=== PATIENT | female | born 2000 | race Two or more races ===

== ENCOUNTER → 2024-10-30 | Outpatient (CLI) | payer MEDICAID, SELFPAY ==
--- NOTE | 2024-10-30 15:15 | XR_ITS ---
Examination: PA lateral chest 2 views TECHNIQUE: Upright PA lateral chest 2 views Exam date and time: October 30, 2024 1538 hours INDICATIONS: Coughing beginning 2 weeks ago. FINDINGS: Normal heart size No lobar pneumonia or pulmonary edema Prominent thoracic dextroscoliosis IMPRESSION: No interval pneumonia or pulmonary edema
== END | disposition home or self-care (01) ==
LOC: CDIM 15:09
PROVIDERS: PCP Physician Assistant; Referring Provider Physician Assistant; Visit Provider Physician Assistant
DX: J98.01 Acute bronchospasm (principal)
CPT/HCPCS: 71046

== ENCOUNTER 2025-02-10 17:16 | Emergency (ER) | payer MEDICAID, SELFPAY ==
[2025-02-10 17:17] VITALS: BMI 29.6
[2025-02-10 17:32] VITALS: BP 119/77; PULSE 76; RESP 18; TEMP 36.9; O2SAT 98
--- NOTE | 2025-02-10 17:50 | PD.EDRME ---
Rapid Medical Screening Exam RME Arrival date/time: 02/10/25 17:16 Chief Complaint: Vaginal Bleeding Vital signs: Vital Signs Temperature 98.5 F 02/10/25 17:32 Pulse Rate 76 02/10/25 17:32 Respiratory Rate 18 02/10/25 17:32 Blood Pressure 119/77 02/10/25 17:32 Pulse Oximetry (%) 98 02/10/25 17:32 Oxygen Delivery Method Room Air 02/10/25 17:32 Vital signs reviewed by provider: Yes RME Narrative: 24-year-old female presents to the ED with complaint of lower abdominal cramping and spotting, only with wiping that began today. Her last menstrual period is unknown as she just recently had her Nexplanon removed approximately 3 months ago. She believes she is approximately 7 weeks she has not had an ultrasound yet. She denies any fever or chills, dysuria or frequency. I have greeted and performed a focused initial assessment of this patient. A comprehensive ED assessment and evaluation of the patient, analysis of all test results, and completion of the medical decision making process will be conducted by additional ED providers.
--- NOTE | 2025-02-10 17:52 | XR_ITS ---
Examination: Complete OB ultrasound, less than 14 weeks, transabdominal Date and time of exam: February 10, 2025, 1901 hours INDICATIONS: Vaginal bleeding and pelvic pain beginning today Technique: Obstetrical ultrasound images less than 14 weeks performed via transabdominal imaging Findings: A normal shaped single intrauterine gestation is present in the uterus. Uterus 10.1 cm intrauterine gestational sac 1.2 cm corresponds to 6 week 0 day gestation weight is No pole, no cardiac activity Right ovary 3.4 cm arterial flow Left ovary 3.0 cm arterial flow IMPRESSION: Empty intrauterine gestational sac corresponding to 6 week 0 day gestational age Recommend follow-up transvaginal pelvic sonography to confirm viability
[2025-02-10 18:29] LABS: Basophils % (Auto) 0 % (0-2.5); Eosinophils # (Auto) 0.1 Thou/mm3 (0.0-0.5); Eosinophils % (Auto) 1 % (0-10); Hematocrit 38.4 % (36.0-46.0); Hemoglobin 13.5 g/dL (12.0-16.0); Immature Granulocytes % (Auto) 0 % (0-0); Immature Granulocytes Auto 0.02 Thou/mm3 (0.00-0.00); Lymphocytes # (Auto) 2.1 Thou/mm3 (1.0-4.8); Lymphocytes % (Auto) 27 % (10-50); Mean Corpuscular HGB Conc 35.2 g/dl (31.0-37.0); Mean Corpuscular Hemoglobin 29.3 pg (25.0-35.0); Mean Corpuscular Volume 84 fL (80-100); Monocytes # (Auto) 0.6 Thou/mm3 (0.0-0.8); Monocytes % (Auto) 8 % (0-12); Neutrophils # (Auto) 5.1 Thou/mm3 (1.8-7.7); Neutrophils % (Auto) 64 % (37-80); Nucleated Red Blood Cell % 0 /100 WBC (0); Platelet Count 229 Thou/mm3 (140-440); RDW Standard Deviation 42.5 fL (36.4-46.3); White Blood Count 7.9 Thou/mm3 (3.6-11.0)
[2025-02-10 18:47] LABS: Collection Type, Urine Clean Catch
[2025-02-10 19:00] LABS: Alanine Aminotransferase 24 U/L (10-49); Albumin, Serum 4.7 gm/dL (3.5-5.0); Alkaline Phosphatase 82 U/L (46-116); Anion Gap 9 (7-16); Aspartate Amino Transferase 19 U/L (0-34); BUN/Creatinine Ratio 7 Ratio (12-20); Bilirubin,Total 0.4 mg/dL (0.3-1.2); Blood Urea Nitrogen < 5 mg/dL (9-23); Calcium 9.4 mg/dL (8.3-10.6); Calcium (Corrected) 9.4 mg/dL (8.5-10.1); Chloride 103 mMol/L (98-107); Creatinine (Component) 0.7 mg/dL (0.6-1.3); Globulin 2.4 gm/dL (2.3-3.5); Glucose 93 mg/dL (74-106); Osmolality,Calculated 269 (275-295); Potassium 3.6 mMol/L (3.4-5.1); Sodium 136 mMol/L (136-145); Total Protein 7.1 gm/dL (5.7-8.2); eGFR > 60 See Note
[2025-02-10 19:08] LABS: Beta HCG,Quantitative 989 mIU/mL (<5.0)
[2025-02-10 19:21] LABS: Bacteria,Urine Rare; Bilirubin,Urine Negative (Negative); Blood,Urine Negative (Negative); Color,Urine Yellow (Lt Yel-Yel); Culture Indicated,Urine Not Indicated; Glucose, Urine Negative (Negative); Ketones,Urine Trace (Negative); Leukocyte Esterase,Urine Positive (Negative); Nitrite,Urine Negative (Negative); PH,Urine 6.5 (5.0-7.0); Protein,Urine Trace (Neg - Trace); RBC,Urine 3 /hpf (0-3); Specific Gravity,Urine 1.024 (1.001-1.035); Squamous Epithelial Cell,Urine 24 /hpf (0-5); Urobilinogen,Urine Negative mg/dL (0.0-1.0); WBC,Urine 6 /hpf (0-5)
[2025-02-10 19:22] LABS: Clarity,Urine Cloudy (Clear/Hazy)
--- NOTE | 2025-02-10 21:07 | PD.EDVAGBL ---
ED OB Contraction Preg RMI/HPI General Chief complaint: Vaginal Bleeding Stated complaint: 7WK PREG AND VAG BLEEDING WITH DIZZINESS Time Seen by Provider: 02/10/25 17:55 Arrival date/time: 02/10/25 17:16 RME / HPI RME / HPI Narrative: 24-year-old female presents to the ED with complaint of lower abdominal cramping and spotting, only with wiping that began today. Her last menstrual period is unknown as she just recently had her Nexplanon removed approximately 3 months ago. She believes she is approximately 7 weeks she has not had an ultrasound yet. She denies any fever or chills, dysuria or frequency. Related Data Home Medications ?Medication ?Instructions ?Recorded ?Confirmed No Known Home Medications 11/26/22 11/26/22 Allergies Allergy/AdvReac Type Severity Reaction Status Date / Time No Known Allergies Allergy Verified 02/10/25 17:20 Review of Systems Review of Systems Systems Reviewed: All systems reviewed, normal except as documented Past Medical History Past Medical History NEUROLOGIC: Negative Neurological Disorders or Seizures CARDIAC: Negative Cardiac Disorders or Congestive Heart Failure RESPIRATORY: Negative Chronic Obstructive Pulmonary Disease (COPD) GASTROINTESTINAL: Positive Gastrointestinal Disorders and Obesity; Negative Hepatitis or Colorectal Cancer GENITOURINARY: Positive Genitourinary Disorders (hx uti); Negative Renal Disease or Prostate Cancer REPRODUCTIVE: Positive Previous Pregnancies; Negative Breast Cancer or Testicular Cancer MUSCULOSKELETAL: Positive Musculoskeletal Disorders and Scoliosis; Negative Bone Cancer ENDOCRINE: Positive Endocrine Disorders; Negative Diabetes Mellitus Type 1 or Diabetes Mellitus Type 2 HEMATOLOGIC: Negative Blood Disorders PSYCHO/SOCIAL: 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.); Negative Anxiety, Behavior Problems, Self-Mutilation, Attention Deficit Disorder, Attention Deficit Hyperactivity Disorder, Depression or Post Traumatic Stress Disorder OTHER HISTORY: Negative Hospitalization, Autoimmune Disease, Down Syndrome, Developmental Delay, Shingles, Falls, Blood Transfusions, Blood Transfusion Reaction, Anesthesia Reactions, Organ Transplant, Chemotherapy, Radiation Therapy, Hyperbaric Therapy, MRSA, VRSA, Vancomycin-Resistant Enterococci, Human Immunodeficiency Virus (HIV), Chicken Pox, Measles, Mumps, Rubella ([place] Measles), Pertussis, Clostridium Difficile, Cancer, Breast Cancer, Cervical Cancer, Colorectal Cancer, Lung Cancer, Ovarian Cancer, Prostate Cancer or Testicular Cancer Family History FAMILY HISTORY: Negative Family Psychiatric Problems, Family Respiratory Disorders, Family Cardiac Disorders, Family Gastrointestinal Problems, Family Cancer, Family Surgery or Family Anesthesia Reaction Surgical History SURGICAL: Negative Section or Organ Transplant Social History SMOKING STATUS: Never smoker SUBSTANCE USE: does not use ED Exam Narrative Physical exam: Alert and oriented 24-year-old female, no acute distress. Lungs are clear, cardiovascular regular rate and rhythm without murmurs, abdomen is soft mild pelvic tenderness. No rebound or guarding. No CVA tenderness. No flank tenderness. Vital signs are stable with a BP 119/77, pulse 76, respirations 18 nonlabored, temp 98.5, O2 sat 98% room air. Course Course Course Narrative: 24-year-old female presents to the ED with complaint of lower abdominal cramping and spotting, only with wiping that began today. Her last menstrual period is unknown as she just recently had her Nexplanon removed approximately 3 months ago. She believes she is approximately 7 weeks she has not had an ultrasound yet. She denies any fever or chills, dysuria or frequency. Alert and oriented 24-year-old female, no acute distress. Lungs are clear, cardiovascular regular rate and rhythm without murmurs, abdomen is soft mild pelvic tenderness. No rebound or guarding. No CVA tenderness. No flank tenderness. Vital signs are stable with a BP 119/77, pulse 76, respirations 18 nonlabored, temp 98.5, O2 sat 98% room air. Quality Measures none Orders Category Date Time Status US OB <= 14 weeks fetus Stat Exams 02/10/25 17:52 Completed ABO/RH Type Stat Lab 02/10/25 18:14 Completed Beta HCG,Quantitative Stat Lab 02/10/25 18:14 Completed CBC Stat Lab 02/10/25 18:14 Completed CMP [Comprehensive Metabolic Panel] Stat Lab 02/10/25 18:14 Completed UA, C/S IF [Urinalysis, C/S if Indicated] Stat Lab 02/10/25 18:31 Completed Urine Culture Stat Lab 02/10/25 18:31 Received Vital Signs Vital signs: Vital Signs Temperature 98.5 F 02/10/25 17:32 Pulse Rate 76 02/10/25 17:32 Respiratory Rate 18 02/10/25 17:32 Blood Pressure 119/77 02/10/25 17:32 Pulse Oximetry (%) 98 02/10/25 17:32 Oxygen Delivery Method Room Air 02/10/25 17:32 Vaginal Bleeding Patient data External records reviewed:: None Clinical information provided by:: patient Social determinants that could affect healthcare access:: none Patient has the following chronic illnesses:: History of previous spontaneous miscarriage and history of gestational diabetes. How is presenting disease/condition affected by chronic disease/condition?: uneffected by Evaluation data The following diagnostics were reviewed and interpreted by me:: lab results and radiology exam(s) Lab and/or radiology exams considered but not ordered:: N/A Interpretation Summary: OB US: Findings: A normal shaped single intrauterine gestation is present in the uterus. Uterus 10.1 cm intrauterine gestational sac 1.2 cm corresponds to 6 week 0 day gestation weight is No pole, no cardiac activity Right ovary 3.4 cm arterial flow Left ovary 3.0 cm arterial flow IMPRESSION: Empty intrauterine gestational sac corresponding to 6 week 0 day gestational age Recommend follow-up transvaginal pelvic sonography to confirm viability Medications / Prescriptions Medications or Prescriptions considered but not ordered:: N/A Medication administrations:: N/A Consultations Consultation(s) initiated? (list below): No Diagnosis Vaginal Bleeding Differential Diagnosis: missed , threatened , dysfunctional uterine bleeding, incomplete and ectopic without intrauterine Most likely diagnosis given after review of the tests above:: Threatened versus blighted ovum Admission Indicated Admission indicated?: not indicated Explain why admission is indicated or not indicated:: Patient is stable for discharge Admission Request Was there a request for admission?: No Disposition Plan Disposition Plan: Discharge Discharge Attestation Discharge Attestation: The patient and all family members were given an opportunity to ask questions and understood the discharge instructions. Discharge instructions specifically effects, indications for sooner follow up or return to the emergency department, and the expected course of current diagnosis. Patient condition: Stable Discharge Plan Plan Patient Disposition: HOME (Self Care) Discharge Disposition comment: Stable Prescriptions/Referrals Prescriptions/Med Rec: No Action No Known Home Medications Referrals: Norris Crawford PA-C [Primary Care Provider] - In 1 week Problem List Clinical Impression: Threatened , Blighted ovum Patient/Caregiver Discharge Instructions Education Materials: Understanding Blighted Ovum, ED Possible Miscarriage ... Additional Instructions: Contact your doctors office tomorrow morning to schedule a follow-up appointment. You will need a repeat hCG level and OB ultrasound. Follow-up with your primary care physician in 24 to 48 hours. Return to the ED for any new or worsening symptoms. Print Language: Macedonian Stand Alone Forms: Lynda Award Info., Patient Portal Info Letter PA/PUBLIC RELATIONS DIRECTOR Supervising Physician PA/PUBLIC RELATIONS DIRECTOR Supervising Physician: Dr. Roblero
== END 2025-02-10 22:09 | disposition home or self-care (01) ==
PROVIDERS: Physician Assistant; Emergency Provider Emergency Medicine; PCP Physician Assistant
DX: O02.0 Blighted ovum and nonhydatidiform mole (principal)
CPT/HCPCS: 36415; 76801; 80053; 81001; 84702; 85025; 86900; 86901; 87086; 99284

== ENCOUNTER 2025-02-18 13:46 | Emergency (ER) | payer MEDICAID, SELFPAY ==
[2025-02-18 13:48] VITALS: BMI 30.4
[2025-02-18 13:52] VITALS: BP 111/74; PULSE 91; RESP 20; TEMP 37.3; O2SAT 97
--- NOTE | 2025-02-18 14:08 | EDNOTE_ITS ---
ED OB Contraction Preg RMI/HPI General Chief complaint: OB/Uterine Contractions Stated complaint: 8 WKS PREG, BLEEDING; SHOULDER/HEAD PAIN; OB SENT Time Seen by Provider: 02/18/25 14:08 Source: patient Arrival date/time: 02/18/25 13:46 Limitations: no limitations RME / HPI RME / HPI Narrative: 24 y/o female presents w a complaint of spotting that began 1 week ago. Today she tells me she continues to spot and notices blood upon wiping. She denies abdominal pain. Last Sunday she noticed tissue upon wiping. Onset (ago): week(s) (X 1) Vaginal bleeding: light and other (Spotting) : yes Related Data Previous Rx's ?Medication ?Instructions ?Recorded cephalexin 500 mg capsule 500 mg PO QID #40 caps 02/18 Allergies Allergy/AdvReac Type Severity Reaction Status Date / Time No Known Allergies Allergy Verified 02/18/25 13:50 Review of Systems Constitutional Constitutional: Reports system reviewed and no additional complaints, except as documented Eyes Eyes: Reports system reviewed and no additional complaints, except as documented, Denies dry eyes, Denies exophthalmos and Reports floaters Cardiovascular Cardiovascular: Denies chest pain with activity and Denies claudication ED Exam General Limitations: Present no limitations General appearance: Present alert and in no apparent distress Head Head exam: Present atraumatic Eye Eye exam: Present normal appearance, PERRL and EOMI ENT ENT exam: Present normal exam, normal oropharynx and mucous membranes moist Neck Neck exam: Present normal inspection, full ROM and trachea midline Chest Chest inspection: Present normal inspection and symmetric chest wall rise Respiratory Respiratory exam: Present normal lung sounds bilaterally Cardiovascular Cardiovascular exam: Present regular rate, normal rhythm and normal heart sounds Abdominal Exam Abdominal exam: Present soft (Non tender. no guarding. ) and normal bowel sounds Rectal Exam Rectal exam: Present deferred Extremities Exam Extremities exam: Present normal inspection and full ROM Back Exam Back exam: Present normal inspection and full ROM Neurological Exam Neurological exam: Present alert and oriented X3 Psychiatric Psychiatric exam: Present normal affect and normal mood Skin Skin exam: Present warm, dry, intact and normal color Course Course Course Narrative: Patient will have a CBC, CMP, UA as well as an ultrasound. Quality Measures none Orders Category Date Time Status US OB <= 14 weeks fetus Stat Exams 02/18/25 14:19 Completed Beta HCG,Quantitative Stat Lab 02/18/25 15:06 Completed CBC Stat Lab 02/18/25 15:06 Completed Comprehensive Metabolic Panel Stat Lab 02/18/25 15:06 Completed Lipase Stat Lab 02/18/25 15:06 Completed Rh Testing Only Stat Lab 02/18/25 15:06 Completed Urinalysis Stat Lab 02/18/25 16:00 Completed Done Vital Signs Vital signs: Vital Signs Temperature 99.1 F 02/18/25 13:52 Pulse Rate 91 02/18/25 13:52 Respiratory Rate 20 02/18/25 13:52 Blood Pressure 111/74 02/18/25 13:52 Pulse Oximetry (%) 97 02/18/25 13:52 Oxygen Delivery Method Room Air 02/18/25 13:52 Room air 97% OB/Uterine Contractions MDM Narrative MDM Narrative:: Patient had an ultrasound which was consistent with spontaneous in progress. Patient also had a CBC and a CMP as well as a UA which demonstrated a urinary tract infection. Patient will have antibiotics sent to the pharmacy of her choice. Patient is to follow-up with primary care physician or [facility] within this coming week. If she is worse or not better then she may return here. Patient will be discharged in no apparent distress. Patient data External records reviewed:: Other (specify) Clinical information provided by:: patient Social determinants that could affect healthcare access:: none Patient has the following chronic illnesses:: N/A How is presenting disease/condition affected by chronic disease/condition?: caused by Evaluation data The following diagnostics were reviewed and interpreted by me:: lab results, radiology exam(s) and other (specify) (UA, ultrasound demonstrates a spontaneous in progress) Lab and/or radiology exams considered but not ordered:: N/A Interpretation Summary: Spontaneous Medications / Prescriptions Medications or Prescriptions considered but not ordered:: None Medication administrations:: [place] Consultations Consultation(s) initiated? (list below): No Diagnosis OB Contractions Differential Diagnosis: hemorrhage, -induced hypertension and premature labor Most likely diagnosis given after review of the tests above:: N/A Admission Indicated Admission indicated?: not indicated Explain why admission is indicated or not indicated:: Patient is stable Admission Request Was there a request for admission?: No Disposition Plan Disposition Plan: Discharge Discharge Attestation Discharge Attestation: The patient and all family members were given an opportunity to ask questions and understood the discharge instructions. Discharge instructions specifically effects, indications for sooner follow up or return to the emergency department, and the expected course of current diagnosis. Patient condition: Stable Discharge Plan Plan Patient Disposition: HOME (Self Care) Discharge Disposition comment: Patient discharged in no apparent distress Patient condition on transfer: Stable Prescriptions/Referrals Prescriptions/Med Rec: New cephalexin 500 mg capsule 500 mg PO QID Qty: 40 0RF Referrals: Norris Crawford PA-C [Primary Care Provider] - In 1 week Problem List Clinical Impression: Spontaneous Impression comment: Spontaneous Patient/Caregiver Discharge Instructions Education Materials: Loss Grieving, Miscarriage Trying Again Print Language: Faroese Stand Alone Forms: Lynda Award Info., Patient Portal Info Letter LILIANA/OZ Supervising Physician LILIANA/OZ Supervising Physician: Brigido
--- NOTE | 2025-02-18 14:19 | XR_ITS ---
Examination: Complete OB ultrasound, less than 14 weeks, transabdominal Date and time of exam: February 18, 2025 1438 hours INDICATIONS: History pelvic pain this week, M.Liliana. intrauterine gestational sac on pelvic sonogram February 10, 2025, no cardiac motion Technique: Obstetrical ultrasound images less than 14 weeks performed via transabdominal imaging Findings: Uterus 9.3 cm gestational sac 0.67 cm corresponds to 5 weeks 3 days gestational age No cardiac activity, no pole the sac is low in position in the uterus Right ovary 3.2 cm arterial flow Left ovary 3.7 cm arterial flow IMPRESSION: Findings most consistent with spontaneous in progress
[2025-02-18 15:34] LABS: Basophils % (Auto) 0 % (0-2.5); Eosinophils # (Auto) 0.1 Thou/mm3 (0.0-0.5); Eosinophils % (Auto) 1 % (0-10); Hematocrit 38.6 % (36.0-46.0); Hemoglobin 13.5 g/dL (12.0-16.0); Immature Granulocytes % (Auto) 0 % (0-0); Immature Granulocytes Auto 0.02 Thou/mm3 (0.00-0.00); Lymphocytes # (Auto) 1.7 Thou/mm3 (1.0-4.8); Lymphocytes % (Auto) 24 % (10-50); Mean Corpuscular Volume 83 fL (80-100); Monocytes # (Auto) 0.9 Thou/mm3 (0.0-0.8); Monocytes % (Auto) 13 % (0-12); Neutrophils # (Auto) 4.3 Thou/mm3 (1.8-7.7); Neutrophils % (Auto) 62 % (37-80); Nucleated Red Blood Cell % 0 /100 WBC (0); Platelet Count 221 Thou/mm3 (140-440); RDW Standard Deviation 41.1 fL (36.4-46.3); Red Blood Count 4.66 Miln/mm3 (4.00-5.20)
[2025-02-18 15:46] LABS: Alanine Aminotransferase 32 U/L (10-49); Albumin, Serum 4.5 gm/dL (3.5-5.0); Alkaline Phosphatase 81 U/L (46-116); Anion Gap 9 (7-16); BUN/Creatinine Ratio 10 Ratio (12-20); Bilirubin,Total 0.4 mg/dL (0.3-1.2); Blood Urea Nitrogen 7 mg/dL (9-23); Calcium 9.3 mg/dL (8.3-10.6); Calcium (Corrected) 9.3 mg/dL (8.5-10.1); Carbon Dioxide 25.4 mMol/L (20.0-31.0); Chloride 102 mMol/L (98-107); Creatinine (Component) 0.7 mg/dL (0.6-1.3); Estimated Creatinine Clearance 144.7 mL/min (>60); Globulin 2.3 gm/dL (2.3-3.5); Glucose 97 mg/dL (74-106); Lipase 43 U/L (12-53); Osmolality,Calculated 269 (275-295); Sodium 136 mMol/L (136-145); Total Protein 6.8 gm/dL (5.7-8.2); eGFR > 60 See Note
[2025-02-18 16:02] LABS: Beta HCG,Quantitative 920 mIU/mL (<5.0)
[2025-02-18 16:09] LABS: Collection Type, Urine Clean Catch
[2025-02-18 16:38] LABS: Bilirubin,Urine Negative (Negative); Blood,Urine 3+ (Negative); Color,Urine Red (Lt Yel-Yel); Glucose, Urine Negative (Negative); Ketones,Urine Negative (Negative); Leukocyte Esterase,Urine Positive (Negative); Nitrite,Urine Negative (Negative); PH,Urine 6.5 (5.0-7.0); Protein,Urine 2+ (Neg - Trace); RBC,Urine 28082 /hpf (0-3); Squamous Epithelial Cell,Urine 92 /hpf (0-5); Urobilinogen,Urine Negative mg/dL (0.0-1.0); WBC,Urine 48 /hpf (0-5)
[2025-02-18 16:43] LABS: Clarity,Urine Bloody (Clear/Hazy)
--- NOTE | 2025-02-18 17:20 | PC.NURSE ---
PT C/O PAIN AND SAID SHE IS PASSING A LOT OF CLOTS. INFORMED PROVIDER LEONORA OF PT'S REQUEST FOR PAIN MED AND ASKED FOR HIM TO REVIEW HER LABS. PT IS ANXIOUS TO GO HOME IF THERE IS NO NEED TO KEEP HER.
== END 2025-02-18 18:31 | disposition home or self-care (01) ==
PROVIDERS: Physician Assistant; Emergency Provider Emergency Medicine; PCP Physician Assistant
DX: O03.9 Complete or unspecified spontaneous abortion without complication (principal)
CPT/HCPCS: 36415; 76801; 80053; 81001; 83690; 84702; 85025; 86901; 99284

== ENCOUNTER 2025-06-29 17:23 | Emergency (ER) | payer MEDICAID, SELFPAY ==
[2025-06-29 18:18] VITALS: BP 119/80; PULSE 82; RESP 18; TEMP 36.8; O2SAT 99
--- NOTE | 2025-06-29 18:20 | XR_ITS ---
Examination: CT abdomen and pelvis without contrast. Coronal 3-D reconstructions. Sagittal 2-D reconstructions. Date and time of exam: June 29, 2025, 1949 hours INDICATIONS: Onset right lower abdominal pain today CTDI: vol (mGy): 10.2 DLP: (mGycm): 585 Technique: Axial images of the abdomen have been obtained, 3 mm slice thickness Intravenous contrast material has not been administered. Low dose protocols were performed. One or more of the following dose reduction techniques were used; automated exposure control, adjustment of the mA and/or KV according to patient size, use of iterative reconstruction technique. Findings: No focal liver or splenic lesions No gallstones No pancreatic or adrenal mass No renal or ureteral calculi, no hydronephrosis Tiny fat-containing umbilical hernia Small lymph nodes in the right lower mesentery Normal appendix No bowel obstruction Intact bladder The osseous structures are intact Small right ovarian cysts, the largest 15 mm IMPRESSION: No renal or ureteral calculi, no hydronephrosis Normal appendix No bowel obstruction diverticulitis or free air Recommend pelvic sonography follow-up to assess right ovarian cystic disease
--- NOTE | 2025-06-29 18:20 | XR_ITS ---
Examination: Pelvic ultrasound, transabdominal, complete Technique: Transabdominal ultrasound of the pelvis performed using grayscale imaging Date and time of exam: June 29, 2025, 1926 hours INDICATIONS: Intermittent vaginal bleeding beginning 4 months ago FINDINGS: Uterus 6.7 cm endometrial stripe 0.5 cm No uterine mass or intrauterine gestation Right ovary 4.0 cm arterial flow 3.2 cm cyst Left ovary 3.1 cm arterial flow IMPRESSION: No uterine mass or intrauterine gestation Right ovarian cyst with internal echoes, consider hemorrhagic cyst, recommend 6-month follow-up pelvic sonography
[2025-06-29 18:50] LABS: Collection Type, Urine Clean Catch
[2025-06-29 19:01] LABS: HCG Qualitative,Urine Negative
[2025-06-29 19:03] LABS: Bilirubin,Urine Negative (Negative); Blood,Urine Trace (Negative); Clarity,Urine Clear (Clear/Hazy); Color,Urine Yellow (Lt Yel-Yel); Glucose, Urine Negative (Negative); Ketones,Urine Negative (Negative); Leukocyte Esterase,Urine Positive (Negative); Nitrite,Urine Negative (Negative); PH,Urine 6.0 (5.0-7.0); Protein,Urine Negative (Neg - Trace); RBC,Urine 4 /hpf (0-3); Specific Gravity,Urine 1.026 (1.001-1.035); Squamous Epithelial Cell,Urine 12 /hpf (0-5); Urobilinogen,Urine Negative mg/dL (0.0-1.0); WBC,Urine 5 /hpf (0-5)
[2025-06-29 19:36] LABS: Basophils # (Auto) 0.0 Thou/mm3 (0.0-0.2); Basophils % (Auto) 1 % (0-2.5); Eosinophils # (Auto) 0.1 Thou/mm3 (0.0-0.5); Eosinophils % (Auto) 1 % (0-10); Hematocrit 40.9 % (36.0-46.0); Hemoglobin 13.9 g/dL (12.0-16.0); Immature Granulocytes Auto 0.02 Thou/mm3 (0.00-0.00); Lymphocytes # (Auto) 2.8 Thou/mm3 (1.0-4.8); Lymphocytes % (Auto) 39 % (10-50); Mean Corpuscular HGB Conc 34.0 g/dl (31.0-37.0); Mean Corpuscular Hemoglobin 28.5 pg (25.0-35.0); Mean Corpuscular Volume 84 fL (80-100); Monocytes # (Auto) 0.8 Thou/mm3 (0.0-0.8); Monocytes % (Auto) 11 % (0-12); Neutrophils # (Auto) 3.5 Thou/mm3 (1.8-7.7); Neutrophils % (Auto) 49 % (37-80); Nucleated Red Blood Cell # 0.00 Thou/mm3 (0.00-0.00); Nucleated Red Blood Cell % 0 /100 WBC (0); Platelet Count 250 Thou/mm3 (140-440); RDW Standard Deviation 41.6 fL (36.4-46.3); Red Blood Count 4.87 Miln/mm3 (4.00-5.20); White Blood Count 7.2 Thou/mm3 (3.6-11.0)
[2025-06-29 19:59] LABS: Alanine Aminotransferase 16 U/L (10-49); Albumin, Serum 4.9 gm/dL (3.5-5.0); Albumin/Globulin Ratio 1.8 (1.2-2.2); Alkaline Phosphatase 89 U/L (46-116); Anion Gap 8 (7-16); Aspartate Amino Transferase 18 U/L (0-34); BUN/Creatinine Ratio 8 Ratio (12-20); Bilirubin,Total 0.3 mg/dL (0.3-1.2); Blood Urea Nitrogen 8 mg/dL (9-23); Calcium 9.6 mg/dL (8.3-10.6); Calcium (Corrected) 9.6 mg/dL (8.5-10.1); Carbon Dioxide 26.9 mMol/L (20.0-31.0); Chloride 106 mMol/L (98-107); Creatinine (Component) 1.0 mg/dL (0.6-1.3); Globulin 2.8 gm/dL (2.3-3.5); Glucose 98 mg/dL (74-106); Lipase 48 U/L (12-53); Osmolality,Calculated 279 (275-295); Potassium 4.0 mMol/L (3.4-5.1); Sodium 141 mMol/L (136-145); Total Protein 7.7 gm/dL (5.7-8.2); eGFR > 60 See Note
--- NOTE | 2025-06-29 21:55 | PD.EDABDPN ---
ED Abdominal Pain RME/HPI General Chief Complaint: Abdominal Pain Stated complaint: PELVIC PAIN Time seen by provider: 06/29/25 17:30 Arrival date/time: 06/29/25 17:23 This is a case of 25-year-old female who came in the emergency room due to right-sided abdominal pain radiating to the right pelvic area associated with nausea vomiting for 3 days patient states that after she had miscarriage last February 2025 2 para 1 she started to have pain worsening of the pain now with vaginal spotting this patient decided to sought consult here in the emergency room Limitations: no limitations Related Data Previous Rx's ?Medication ?Instructions ?Recorded cephalexin 500 mg capsule 500 mg PO QID #40 caps 02/18/25 cephalexin 500 mg tablet 500 mg PO QID #40 tabs 06/29/25 ibuprofen 800 mg tablet 800 mg PO Q8H PRN pain #20 tabs 06/29/25 ondansetron 4 mg disintegrating 4 mg PO Q8H #20 tabs 06/29/25 tablet Allergies Allergy/AdvReac Type Severity Reaction Status Date / Time No Known Allergies Allergy Verified 06/29/25 17:26 Review of Systems Review of Systems Systems Reviewed: All systems reviewed, normal except as documented Constitutional Constitutional: Reports system reviewed and no additional complaints, except as documented and Reports as per HPI Cardiovascular Cardiovascular: Reports system reviewed and no additional complaints, except as documented and Reports as per HPI Respiratory Respiratory: Reports system reviewed and no additional complaints, except as documented and Reports as per HPI Gastrointestinal Gastrointestinal: Reports system reviewed and no additional complaints, except as documented and Reports as per HPI Genitourinary Genitourinary: Reports system reviewed and no additional complaints, except as documented and Reports as per HPI Musculoskeletal Musculoskeletal: Reports system reviewed and no additional complaints, except as documented and Reports as per HPI Neurologic Neurologic: Reports system reviewed and no additional complaints, except as documented and Reports as per HPI Past Medical History Past Medical History NEUROLOGIC: Negative Neurological Disorders or Seizures CARDIAC: Negative Cardiac Disorders or Congestive Heart Failure RESPIRATORY: Negative Chronic Obstructive Pulmonary Disease (COPD) GASTROINTESTINAL: Positive Gastrointestinal Disorders and Obesity; Negative Hepatitis or Colorectal Cancer GENITOURINARY: Positive Genitourinary Disorders (hx uti); Negative Renal Disease or Prostate Cancer REPRODUCTIVE: Positive Previous Pregnancies; Negative Breast Cancer or Testicular Cancer MUSCULOSKELETAL: Positive Musculoskeletal Disorders and Scoliosis; Negative Bone Cancer ENDOCRINE: Positive Endocrine Disorders; Negative Diabetes Mellitus Type 1 or Diabetes Mellitus Type 2 HEMATOLOGIC: Negative Blood Disorders PSYCHO/SOCIAL: 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.); Negative Anxiety, Behavior Problems, Self-Mutilation, Attention Deficit Disorder, Attention Deficit Hyperactivity Disorder, Depression or Post Traumatic Stress Disorder OTHER HISTORY: Negative Hospitalization, Autoimmune Disease, Down Syndrome, Developmental Delay, Shingles, Falls, Blood Transfusions, Blood Transfusion Reaction, Anesthesia Reactions, Organ Transplant, Chemotherapy, Radiation Therapy, Hyperbaric Therapy, MRSA, VRSA, Vancomycin-Resistant Enterococci, Human Immunodeficiency Virus (HIV), Chicken Pox, Measles, Mumps, Rubella ([place] Measles), Pertussis, Clostridium Difficile, Cancer, Breast Cancer, Cervical Cancer, Colorectal Cancer, Lung Cancer, Ovarian Cancer, Prostate Cancer or Testicular Cancer Family History FAMILY HISTORY: Negative Family Psychiatric Problems, Family Respiratory Disorders, Family Cardiac Disorders, Family Gastrointestinal Problems, Family Cancer, Family Surgery or Family Anesthesia Reaction Surgical History SURGICAL: Negative Section or Organ Transplant Social History SMOKING STATUS: Never smoker SUBSTANCE USE: does not use ED Exam General Limitations: Present no limitations General appearance: Present alert, in no apparent distress and other (Patient is awake alert oriented not in distress nontoxic looking well-hydrated well-nourished) Head Head exam: Present atraumatic, normocephalic and normal inspection Eye Eye exam: Present normal appearance, PERRL and EOMI ENT ENT exam: Present normal exam, normal oropharynx and mucous membranes moist Neck Neck exam: Present normal inspection, full ROM and trachea midline; Absent tenderness, meningismus, lymphadenopathy or thyromegaly Chest Chest inspection: Present normal inspection and symmetric chest wall rise; Absent tenderness Respiratory Respiratory exam: Present normal lung sounds bilaterally; Absent respiratory distress, wheezes, stridor, accessory muscle use or prolonged expiratory phase Cardiovascular Cardiovascular exam: Present regular rate, normal rhythm and normal heart sounds; Absent bradycardia, tachycardia, irregular rhythm, systolic murmur or diastolic murmur Abdominal Exam Abdominal exam: Present soft, tenderness (Mild tenderness on the right pelvic area and right lower quadrant but no guarding no rebound no rigidity negative psoas negative straight or negative Rovsing's negative Manter's negative IV sign negative CVA tenderness) and normal bowel sounds; Absent distention, guarding, rebound, rigidity, diminished bowel sounds, hyperactive bowel sounds, hypoactive bowel sounds, organomegaly, obturator sign, Hollingsworth's sign, Rovsing's sign, tenderness at McBurney's Point or hernia Extremities Exam Extremities exam: Present normal inspection and full ROM Back Exam Back exam: Present normal inspection and full ROM Neurological Exam Neurological exam: Present alert, oriented X3, CN II-XII intact, normal gait and reflexes normal; Absent motor sensory deficit Psychiatric Psychiatric exam: Present normal affect and normal mood Skin Skin exam: Present warm, dry, intact and normal color Course Quality Measures none Orders Category Date Time Status CT abdomen pelvis wo con Stat Exams 06/29/25 18:20 Completed US pelvic complete Stat Exams 06/29/25 18:20 Completed CBC Stat Lab 06/29/25 19:27 Completed Comprehensive Metabolic Panel Stat Lab 06/29/25 19:27 Completed HCG Qualitative,Urine Stat Lab 06/29/25 18:28 Completed Lipase Stat Lab 06/29/25 19:27 Completed Urinalysis Stat Lab 06/29/25 18:28 Completed Vital Signs Vital signs: Vital Signs Temperature 98.3 F 06/29/25 18:18 Pulse Rate 82 06/29/25 18:18 Respiratory Rate 18 06/29/25 18:18 Blood Pressure 119/80 06/29/25 18:18 Pulse Oximetry (%) 99 06/29/25 18:18 Oxygen Delivery Method Room Air 06/29/25 18:18 Oxygen saturation is 99% in room air Abdominal Pain MDM MDM Narrative MDM Narrative:: This is a case of 25-year-old female who came in the emergency room due to right-sided abdominal pain radiating to the right pelvic area associated with nausea vomiting for 3 days patient states that after she had miscarriage last February 2025 2 para 1 she started to have pain worsening of the pain now with vaginal spotting this patient decided to sought consult here in the emergency room physical examination patient is awake alert oriented not in distress nontoxic looking well-hydrated well-nourished patient has excellent skin turgor patient noted to have mild tenderness on the right lower quadrant and right pelvic area no rigidity no guarding no rebound tenderness negative psoas negative straight or negative Rovsing's negative McBurney's negative Hollingsworth sign negative CVA tenderness bladder is not distended not tender the rest of the physical examination and neurological exam is normal and unremarkable blood test showed no leukocytosis no anemia kidney and liver function is normal no electrolyte imbalance lipase is normal patient is not urinalysis shows WBC in the urine suggestive of urinary tract infection CT scan showed were unremarkable except for right ovarian cyst which was confirmed by the pelvic ultrasound possible hemorrhagic cyst but no ovarian torsion patient was given [place] Zofran which improved and resolve the pain I have a long discussion with the patient she needs to see an OB bookkeeping clerks supervisor for further evaluation and treatment of abnormal vaginal spotting and right ovarian cyst for any worsening symptoms or any emergent concerns she will return in the emergency room immediately or call 911 she was prescribed with ibuprofen for pain Zofran for nausea vomiting and cephalexin for urinary tract infection Patient was discharged with comfortable condition walking with stable gait. Patient verbalized no further complains explained diagnosis and answered patient question. Patient is comfortable with the proposed management plan including the need to follow up with his/her primary care physician and any specialist if applicable Discussed patient for any urgent condition or worsening sx, He/She needed to go to emergency room immediately or call 911. Patient acknowledge the responsibility to follow up as instructed and to monitor her/his symptoms. For any persistence of the symptoms for more than 3-5 days return precaution advised. Discussed the result of the test and was given printed discharge instruction Patient data External records reviewed:: [facility] previous records Clinical information provided by:: patient Social determinants that could affect healthcare access:: none Patient has the following chronic illnesses:: None How is presenting disease/condition affected by chronic disease/condition?: no chronic disease Evaluation data The following diagnostics were reviewed and interpreted by me:: lab results and radiology exam(s) Lab and/or radiology exams considered but not ordered:: Reviewed Interpretation Summary: Reviewed Medications / Prescriptions Medications or Prescriptions considered but not ordered:: Given Medication administrations:: Given Consultations Consultation(s) initiated? (list below): No Diagnosis Differential diagnosis abdominal pain: abdominal pain, acute appendicitis, calculus of kidney, diverticulitis, endometriosis and pancreatitis (Ovarian cyst) Most likely diagnosis given after review of the tests above:: Ovarian cyst abnormal uterine bleeding urinary infection Admission Indicated Admission indicated?: not indicated Explain why admission is indicated or not indicated:: Not indicated Admission Request Was there a request for admission?: No Admission Attestation Admission request attestation: Not indicated Disposition Plan Disposition Plan: Discharge Discharge Attestation Discharge Attestation: The patient and all family members were given an opportunity to ask questions and understood the discharge instructions. Discharge instructions specifically effects, indications for sooner follow up or return to the emergency department, and the expected course of current diagnosis. Patient condition: Stable Discharge Plan Plan Patient Disposition: HOME (Self Care) Patient condition on transfer: Stable Prescriptions/Referrals Prescriptions/Med Rec: New cephalexin 500 mg tablet 500 mg PO QID Qty: 40 0RF ibuprofen 800 mg tablet 800 mg PO Q8H PRN (Reason: pain) Qty: 20 0RF ondansetron 4 mg tablet,disintegrating 4 mg PO Q8H Qty: 20 0RF No Action cephalexin 500 mg capsule 500 mg PO QID Qty: 40 0RF Referrals: Saul Del Valle MD [Primary Care Provider, Pediatrics] - In 1 week Problem List Clinical Impression: Abdominal pain, Urinary tract infection, Abnormal uterine bleeding, Ovarian cyst Patient/Caregiver Discharge Instructions Education Materials: Abdominal Pain, Urinary Tract Infections in Women, Understanding Ovarian Cysts, ED Dysfunctional Uterine Bleeding Additional Instructions: Follow-up with your primary care physician in 2 days for reevaluation and to be referred to OB bookkeeping clerks supervisor for further evaluation and treatment of abnormal uterine bleeding and ovarian cyst recurrence persistent worsening symptoms or any new emergent concern call 911 or go to the nearest emergency room take your medication as directed finish the course of antibiotic increase water intake keep hydrated Pedialyte Gatorade for hydration it is very important to see an OB bookkeeping clerks supervisor and to have a pelvic ultrasound repeated in 6 months for suggestion of the radiologist Print Language: Bengali Stand Alone Forms: Lynda Award Info., Patient Portal Info Letter PA/EXHIBITION DESIGNER Supervising Physician PA/EXHIBITION DESIGNER Supervising Physician: dr mcgarry
[2025-06-29 22:47] VITALS: BP 109/73; PULSE 79; RESP 16; TEMP 36.9; O2SAT 100
== END 2025-06-29 22:49 | disposition home or self-care (01) ==
PROVIDERS: Nurse Practitioner Family; Emergency Provider Emergency Medicine; PCP Pediatrics
DX: N39.0 Urinary tract infection, site not specified (principal); N83.209 Unspecified ovarian cyst, unspecified side
CPT/HCPCS: 36415; 74176; 76856; 80053; 81001; 81025; 83690; 85025; 99283

== ENCOUNTER 2025-09-04 17:11 | Emergency (ER) | payer MEDICAID, SELFPAY ==
[2025-09-04 17:12] VITALS: BMI 30.4
[2025-09-04 17:22] VITALS: BP 128/96; PULSE 90; RESP 16; TEMP 37; O2SAT 100
--- NOTE | 2025-09-04 17:34 | XR_ITS ---
Examination: Pelvic ultrasound, transabdominal, complete Technique: Transabdominal ultrasound of the pelvis performed using grayscale imaging Date and time of exam: September 04, 2025, 1900 hours INDICATION: Pelvic pain beginning several months ago. FINDINGS: Uterus 9.0 cm no uterine mass or intrauterine gestation Endometrial stripe 0.29 cm Right ovary 3.3 cm arterial flow 9 mm follicular cyst Left ovary 3.2 cm arterial flow IMPRESSION: No uterine mass or intrauterine gestation
--- NOTE | 2025-09-04 17:35 | PD.EDRME ---
Rapid Medical Screening Exam RME Arrival date/time: 09/04/25 17:11 25-year-old female with no known medical history presents to the emergency room with a chief complaint of bilateral pelvic pain x 3 days I have greeted and performed a focused initial assessment of this patient. A comprehensive ED assessment and evaluation of the patient, analysis of all test results, and completion of the medical decision making process will be conducted by additional ED providers. Chief Complaint: Abdominal Pain Vital signs: Vital Signs Temperature 98.6 F 09/04/25 17:22 Pulse Rate 90 09/04/25 17:22 Respiratory Rate 16 09/04/25 17:22 Blood Pressure 128/96 H 09/04/25 17:22 Pulse Oximetry (%) 100 09/04/25 17:22 Oxygen Delivery Method Room Air 09/04/25 17:22 Vital signs reviewed by provider: Yes Exam: Lower abdominal tenderness with palpation Clear bilateral lung sounds Clinical Impression: Ovarian cyst/abdominal pain
[2025-09-04 18:01] LABS: Basophils # (Auto) 0.0 Thou/mm3 (0.0-0.2); Basophils % (Auto) 0 % (0-2.5); Eosinophils # (Auto) 0.1 Thou/mm3 (0.0-0.5); Eosinophils % (Auto) 1 % (0-10); Hematocrit 41.5 % (36.0-46.0); Hemoglobin 14.0 g/dL (12.0-16.0); Immature Granulocytes Auto 0.02 Thou/mm3 (0.00-0.00); Lymphocytes # (Auto) 2.6 Thou/mm3 (1.0-4.8); Lymphocytes % (Auto) 38 % (10-50); Mean Corpuscular HGB Conc 33.7 g/dl (31.0-37.0); Mean Corpuscular Hemoglobin 28.7 pg (25.0-35.0); Mean Corpuscular Volume 85 fL (80-100); Monocytes # (Auto) 0.6 Thou/mm3 (0.0-0.8); Monocytes % (Auto) 9 % (0-12); Neutrophils # (Auto) 3.6 Thou/mm3 (1.8-7.7); Neutrophils % (Auto) 52 % (37-80); Nucleated Red Blood Cell # 0.00 Thou/mm3 (0.00-0.00); Nucleated Red Blood Cell % 0 /100 WBC (0); Platelet Count 263 Thou/mm3 (140-440); RDW Standard Deviation 41.3 fL (36.4-46.3); Red Blood Count 4.88 Miln/mm3 (4.00-5.20); White Blood Count 6.9 Thou/mm3 (3.6-11.0)
[2025-09-04 18:07] LABS: Collection Type, Urine Clean Catch
[2025-09-04 18:20] LABS: Alanine Aminotransferase 15 U/L (10-49); Albumin, Serum 4.7 gm/dL (3.5-5.0); Albumin/Globulin Ratio 1.5 (1.2-2.2); Alkaline Phosphatase 91 U/L (46-116); Anion Gap 10 (7-16); Aspartate Amino Transferase 22 U/L (0-34); BUN/Creatinine Ratio 7 Ratio (12-20); Bilirubin,Total 0.3 mg/dL (0.3-1.2); Blood Urea Nitrogen 6 mg/dL (9-23); Calcium 8.8 mg/dL (8.3-10.6); Calcium (Corrected) 8.8 mg/dL (8.5-10.1); Carbon Dioxide 26.1 mMol/L (20.0-31.0); Chloride 106 mMol/L (98-107); Creatinine (Component) 0.9 mg/dL (0.6-1.3); Estimated Creatinine Clearance 111.6 mL/min (>60); Globulin 3.1 gm/dL (2.3-3.5); Glucose 98 mg/dL (74-106); Lipase 47 U/L (12-53); Osmolality,Calculated 280 (275-295); Potassium 3.9 mMol/L (3.4-5.1); Sodium 142 mMol/L (136-145); Total Protein 7.8 gm/dL (5.7-8.2); eGFR > 60 See Note
[2025-09-04 18:26] LABS: Bilirubin,Urine Negative (Negative); Blood,Urine Negative (Negative); Clarity,Urine Clear (Clear/Hazy); Color,Urine Yellow (Lt Yel-Yel); Glucose, Urine Negative (Negative); HCG Qualitative,Urine Negative; Ketones,Urine Negative (Negative); Leukocyte Esterase,Urine Negative (Negative); Nitrite,Urine Negative (Negative); PH,Urine 6.5 (5.0-7.0); Protein,Urine Negative (Neg - Trace); RBC,Urine 3 /hpf (0-3); Specific Gravity,Urine 1.022 (1.001-1.035); Squamous Epithelial Cell,Urine 6 /hpf (0-5); Urobilinogen,Urine Negative mg/dL (0.0-1.0); WBC,Urine 2 /hpf (0-5)
--- NOTE | 2025-09-04 19:33 | EDNOTE_ITS ---
ED Abdominal Pain RME/HPI General Chief Complaint: Abdominal Pain Stated complaint: PELVIC PAIN X4 DAYS Time seen by provider: 09/04/25 19:07 Arrival date/time: 09/04/25 17:11 55-year-old female patient came in for evaluation regarding pelvic pain. This been ongoing for the last 4 days, described as dull ache, stable to moderate. No fever no dysuria no vaginal bleeding no diarrhea no constipation. No medication was taken prior to ER visit. Patient is concerned because she had uterine massage last August 15. She denies any other complaints. RME / HPI RME / HPI narrative: 09/04/25 17:11 25-year-old female with no known medical history presents to the emergency room with a chief complaint of bilateral pelvic pain x 3 days I have greeted and performed a focused initial assessment of this patient. A comprehensive ED assessment and evaluation of the patient, analysis of all test results, and completion of the medical decision making process will be conducted by additional ED providers. Exam: Lower abdominal tenderness with palpation Clear bilateral lung sounds Impression: Ovarian cyst/abdominal pain Related Data Previous Rx's ?Medication ?Instructions ?Recorded cephalexin 500 mg capsule 500 mg PO QID #40 caps 02/18 cephalexin 500 mg tablet 500 mg PO QID #40 tabs 06/29 ibuprofen 800 mg tablet 800 mg PO Q8H PRN pain #20 t abs 06/29/25 ondansetron 4 mg disintegrating 4 mg PO Q8H #20 tabs 1 tablet ketorolac 10 mg tablet 10 mg PO Q8H PRN pain 5 days #20 09/04/25 tabs Allergies Allergy/AdvReac Type Severity Reaction Status Date / Time No Known Allergies Allergy Verified 09/04/25 17:14 Review of Systems Review of Systems Narrative Review of Systems: Review of system reviewed and within normal limits except mentioned in HPI ED Exam Narrative Physical exam: VITAL SIGNS: Reviewed. GENERAL APPEARANCE: Alert and interactive, follows commands, no acute distress, HEAD AND FACE: Non-traumatic. ENT: PERRL, pink conjunctivitis, eyelid no trauma, Mucous membrane moist. NECK: Supple, nontender, no nuchal rigidity. CHEST: No tenderness, no crepitus, no paradoxical movement, no retractions. LUNGS: Clear, well ventilated, symmetric, no rales, no wheezing, no ronchi, no stridor, good breath sounds bilaterally. HEART: Regular rate, regular rhythm, no murmur, no gallops. ABDOMEN: Soft, positive bowel sounds, nondistended, no guarding, pelvic tenderness on palpation no rebound, no masses, RECTAL: Deferred. GENITAL: Deferred. NEUROLOGICAL: Gross motor function intact sensory function intact, Appropriate for age. MUSCULOSKELETAL: low back nontender, full range of motion. EXTREMITIES: Nontender, full range of motion. SKIN: Color pink, dry, no rash, no lacerations, no abrasions, no contusions. LYMPHATICS: Deferred. Course Quality Measures none Orders Category Date Time Status US pelvic complete Stat Exams 09/04/25 17:34 Taken CBC Stat Lab 09/04/25 17:45 Completed CMP [Comprehensive Metabolic Panel] Stat Lab 09/04/25 17:45 Completed HCG Qualitative,Urine Stat Lab 09/04/25 17:58 Completed Lipase Stat Lab 09/04/25 17:45 Completed UA [Urinalysis] Stat Lab 09/04/25 17:58 Completed Urine Culture Stat Lab 09/04/25 17:34 Received Ketorolac Inj [Toradol Inj] Med 09/04/25 19:47 Discontinued 30 mg IM X1 ONE Vital Signs Vital signs: Vital Signs Temperature 98.6 F 09/04/25 17:22 Pulse Rate 90 09/04/25 17:22 Respiratory Rate 16 09/04/25 17:22 Blood Pressure 128/96 H 09/04/25 17:22 Pulse Oximetry (%) 100 09/04/25 17:22 Oxygen Delivery Method Room Air 09/04/25 17:22 Abdominal Pain MDM [facility] Narrative [facility] Narrative:: 25-year-old female patient came in for evaluation regarding pelvic pain. This been ongoing for the last 4 days, described as dull ache, stable to moderate. No fever no dysuria no vaginal bleeding no diarrhea no constipation. No medication was taken prior to ER visit. Patient's workup today all came back normal including no leukocytosis, CMP unremarkable urinalysis no UTI ultrasound of the pelvis, preliminary read showed ovarian cyst otherwise unremarkable no torsion noted. Patient was given Toradol IM with significant proving of pain. Patient was advised to follow-up closely with ATTENDING RADIOLOGIST. Patient agrees with the plan. Patient data External records reviewed:: None Clinical information provided by:: patient Social determinants that could affect healthcare access:: none Patient has the following chronic illnesses:: None How is presenting disease/condition affected by chronic disease/condition?: no chronic disease Evaluation data The following diagnostics were reviewed and interpreted by me:: lab results and radiology exam(s) Lab and/or radiology exams considered but not ordered:: None Interpretation Summary: See results Medications / Prescriptions Medications or Prescriptions considered but not ordered:: None Medication administrations:: Medication Administration History Discontinued Medications Ketorolac Tromethamine (Ketorolac Inj 30 Mg/Ml Vial) 30 mg IM X1 ONE Stop: 09/04/25 19:48 Toradol IM Consultations Consultation(s) initiated? (list below): No Diagnosis Differential diagnosis abdominal pain: abdominal pain and other (Pelvic pain, UTI, ovarian torsion ovarian cyst) Most likely diagnosis given after review of the tests above:: Pelvic pain, ovarian cyst Admission Indicated Admission indicated?: not indicated Admission Request Was there a request for admission?: No Disposition Plan Disposition Plan: Discharge Discharge Attestation Discharge Attestation: The patient was given an opportunity to ask questions and understood the discharge instructions. Discharge instructions specifically effects, indications for sooner follow up or return to the emergency department, and the expected course of current diagnosis. Patient condition: Stable Discharge Plan Plan Patient Disposition: HOME (Self Care) Prescriptions/Referrals Prescriptions/Med Rec: New ketorolac 10 mg tablet 10 mg PO Q8H PRN (Reason: pain) 5 Days Qty: 20 0RF No Action cephalexin 500 mg tablet 500 mg PO QID Qty: 40 0RF ibuprofen 800 mg tablet 800 mg PO Q8H PRN (Reason: pain) Qty: 20 0RF ondansetron 4 mg tablet,disintegrating 4 mg PO Q8H Qty: 20 0RF cephalexin 500 mg capsule 500 mg PO QID Qty: 40 0RF Referrals: No Primary/Family,Physician [Primary Care Provider] - In 1 week Problem List Clinical Impression: Pelvic pain, Ovarian cyst Patient/Caregiver Discharge Instructions Discharge Activity: activity as tolerated Education Materials: Understanding the Pain Response Additional Instructions: Thank you for the opportunity for serving you today. You are stable for discharged . You are advised to: Follow-up with your ATTENDING RADIOLOGIST in 1 to 2 days Return to ED for worsening of symptoms Increase oral fluids Take medication as prescribed Print Language: Brazilian Stand Alone Forms: Lynda Award Info., Patient Portal Info Letter PA/SECURITY OPERATIONS SPECIALIST Supervising Physician LILIANA/SECURITY OPERATIONS SPECIALIST Supervising Physician: MD Loli
[2025-09-04] MEDS: KETOROLAC INJ 30 MG/ML VIAL IM (19:56)
[2025-09-04 20:01] VITALS: BP 127/65; PULSE 78; RESP 19; TEMP 36.6; O2SAT 99
--- NOTE | 2025-09-04 20:11 | PRELIM_ITS ---
Pelvic ultrasound (transabdominal). September 04, 2025 1901 hours Clinical history: Pelvic pain Technique: Real-time, grayscale, transabdominal pelvic ultrasound was performed using Duplex scanning including arterial inflow, venous outflow, color and spectral Doppler. Comparison: No prior study is available for comparison. Findings: The uterus is normal in size measuring 9.0 x 2.3 x 5.0 cm. The endometrium is unremarkable and measures 0.2 cm. The right ovary measures 3.3 x 2.0 x 2.7 cm and is unremarkable. The left ovary measures 3.1 x 1.9 x 2.5 cm and is unremarkable. Both ovaries demonstrate color flow and spectral waveforms on Doppler evaluation. There is no adnexal mass. There is no free fluid on the submitted images. Impression: Unremarkable pelvic ultrasound. No sonographic evidence of ovarian torsion is demonstrated on the submitted images. Report Electronically Signed By: Tiffanie Mullins 09/04/2025 8:10:48 PM [EST]
== END 2025-09-04 20:01 | disposition home or self-care (01) ==
PROVIDERS: Nurse Practitioner Family; Emergency Provider Emergency Medicine
DX: N83.209 Unspecified ovarian cyst, unspecified side (principal)
CPT/HCPCS: 36415; 76856; 80053; 81001; 81025; 83690; 85025; 87086; 96372; 99283; J1885